=== PATIENT | female | born 1990 | race Caucasian/White ===

== ENCOUNTER 2018-08-03 11:49 | Emergency (ER) | payer SELFPAY ==
[~2018-08-03] VITALS: Ht 167.6 cm; Wt 78.9 kg
[2018-08-03 11:54] VITALS: BP 117/73; PULSE 94; RESP 18; Ht 167.6 cm; Wt 78.9 kg
--- NOTE | 2018-08-03 12:28 | ERD ---
ER Documentation Chief Complaint Chief Complaint vag bleed LMP 05/15/18 HPI This is a 28-year-old female, , presents ED after being seen at a woman[facility] clinic earlier today and being told she had a positive test and with complaints of vaginal bleeding times 6 days. Patient states that 6 days ago she had heavy vaginal bleeding and passed a clot. Patient states that she has been spotting here and there since 6 days ago. Patient states that she is not bleeding enough to wear a pad or tampon. Patient's last menstrual period was 05-15-18 but she states that her menses are irregular. Denies fever, chills, headache, lightheadedness, nausea, vomiting, diarrhea, constipation, hemoptysis, melena, hematochezia, vaginal pain, vaginal discharge, abdominal pain no other symptoms. No known drug allergies ROS All systems reviewed and are negative except as per history of present illness. Medications Home Meds Active Scripts Cephalexin* (Keflex*) 500 Mg Capsule, 500 MG PO BID for 7 Days, CAP Prov:MEGAN CORNELIUS PA-C 08/03/18 Allergies Allergies: Coded Allergies: latex (Verified Allergy, Unknown, 08/03/18) PMhx/Soc Hx Alcohol Use: Yes Hx Substance Use: No Hx Tobacco Use: No Smoking Status: Never smoker FmHx Family History: No diabetes Physical Exam Vitals Vital Signs Date Temp Pulse Resp B/P (MAP) Pulse Ox O2 O2 Flow FiO2 Time Delivery Rate 08/03/18 98.4 94 18 117/73 99 11:54 (88) Physical Exam Const: No acute distress Head: Atraumatic Eyes: Normal Conjunctiva ENT: Normal External Ears, Nose and Mouth. Neck: Full range of motion. No meningismus. Resp: Clear to auscultation bilaterally Cardio: Regular rate and rhythm, no murmurs Abd: Soft, non tender, non distended. Normal bowel sounds, no peritoneal signs, no rigidity, no surgical abdomen, bowel sounds present all 4 quadrants, McBurney's point nontender, no rebound tenderness, nontender light deep palpation all 4 quadrants Skin: No petechiae or rashes Back: No midline or flank tenderness Ext: No cyanosis, or edema Neur: Awake and alert Psych: Normal Mood and Affect Result Diagram: 08/03/18 1241 08/03/18 1241 Results 24 hrs Laboratory Tests Test 08/03/18 12:30 08/03/18 12:40 08/03/18 12:41 Urine Color YELLOW Urine Clarity SLIGHTLY CLOUDY Urine pH 7.0 Urine Specific [place] 1.021 Urine Ketones NEGATIVE mg/dL Urine Nitrite NEGATIVE mg/dL Urine Bilirubin NEGATIVE mg/dL Urine Urobilinogen 2+ mg/dL Urine Leukocyte Esterase 1+ [place]/ul Urine Microscopic RBC 11 /HPF Urine Microscopic WBC 17 /HPF Urine Squamous Epithelial Cells MANY /HPF Urine Mucus FEW /HPF Urine Hemoglobin 3+ mg/dL Urine Glucose NEGATIVE mg/dL Urine Total Protein 2+ mg/dl POC Beta HCG, Qualitative POSITIVE White Blood Count 5.2 10^3/ul Red Blood Count 4.36 10^6/ul Hemoglobin 13.6 g/dl Hematocrit 40.6 % Mean Corpuscular Volume 93.1 fl Mean Corpuscular Hemoglobin 31.2 pg Mean Corpuscular 33.5 g/dl Hemoglobin Concent Red Cell Distribution Width 13.0 % Platelet Count 241 10^3/UL Mean Platelet Volume 10.2 fl Immature Granulocytes % 0.200 % Neutrophils % % Segmented Neutrophils % (Manual) 49 % Band Neutrophils % (Manual) 11 % Lymphocytes % % Lymphocytes % (Manual) 23 % Reactive Lymphocytes % (Manual) 13 % Monocytes % % Monocytes % (Manual) 1 % Eosinophils % % Eosinophils % (Manual) 2 % Basophils % % Basophils % (Manual) 0.0 % Metamyelocytes % (manual) 0 % Myelocytes % (Manual) 1 % Promyelocytes % (Manual) 0 % Blast Cells % (Manual) 0.0 % Plasma Cells % (manual) 0 % Nucleated Red Blood Cells % 0 % Immature Granulocytes # 0.010 10^3/ul Neutrophils # 10^3/ul Neutrophils # (Manual) 2.6 10^3/ul Band Neutrophils # 0.5 10^3/ul Lymphocytes (Manual) 1.1 10^3/ul Lymphocytes # 10^3/ul Reactive Lymphocytes # 0.6 10^3/ul Monocytes # 10^3/ul Monocytes # (Manual) 0.0 10^3/ul Eosinophils # 10^3/ul Basophils # 10^3/ul Basophils # (Manual) 0.0 10^3/ul Metamyelocytes # 0.0 10^3/ul Myelocytes # 0.0 10^3/ul Promyelocytes # 0.0 10^3/ul Blastocytes # 0.0 10^3/UL Plasma Cells # (manual) 0.0 10^3/ul Nucleated Red Blood Cells # 10^3/ul Percent Large 0 % Granular Lymphocytes Prolymphocytes 0 10^3/ul Absolute Prolymphocytes 0.0 10^3/ul Promonocytes 0 % Prothrombin Time 12.2 Sec Prothrombin Time Ratio 1.0 INR International 0.89 Normalized Ratio Activated Partial Thromboplast 31.1 Sec Time Sodium Level 138 mmol/L Potassium Level 3.8 mmol/L Chloride Level 103 mmol/L Carbon Dioxide Level 24 mmol/L Anion Gap 11 Blood Urea Nitrogen 7 mg/dl Creatinine 0.58 mg/dl Est Glomerular Filtrat > 60 mL/min Rate mL/min Glucose Level 112 mg/dl Calcium Level 9.6 mg/dl Total Bilirubin 0.0 mg/dl Direct Bilirubin 0.00 mg/dl Indirect Bilirubin 0.0 mg/dl Aspartate Amino 37 IU/L Transf (AST/SGOT) Alanine 38 IU/L Aminotransferase (ALT/SGPT) Alkaline Phosphatase 61 IU/L Total Protein 7.9 g/dl Albumin 4.4 g/dl Globulin 3.50 g/dl Albumin/Globulin Ratio 1.25 Beta HCG, Quantitative 12274.0 mIU/ml Procedures/MDM EKG, MONITORS, & DIAGNOSTIC IMAGING: [place] [address] Radiology Main Line: [phone] DIAGNOSTIC IMAGING REPORT Patient: JEVON REILLY : 1990 Age: 28 Sex: F MR #: [id number] DOS: 08/03/18 0000 Ordering MD: MEGAN CORNELIUS PA-C Location: [facility] Room/Bed: PROCEDURE: US Obstetrical 1st Trimester CLINICAL INDICATION: Vaginal bleeding TECHNIQUE: Multiple real-time images were acquired of the patient's maternal abdomen utilizing a curved array transducer. COMPARISON: None FINDINGS: The uterus is anteverted and normal in size measuring 8.8 cm in sagittal diameter and 6.0 x 5.8 cm in cross diameter.. There is a well implanted gestational sac within the fundus of the uterus. A yolk sac is identified. There is a single pole with a crown-rump length of 2.09 cm which corresponds to a gestational age of 8 weeks 5 days plus or minus 5 days. There is positive cardiac activity being at 174 beats per minute. The right ovary measures 4.5 x 3.2 x 2.3 cm and appears normal.. The left ovary is not identified. No adnexal mass or free fluid is identified IMPRESSION: 1. Single live intrauterine fetus which by ultrasound corresponds to a gestational age of a weeks 5 days plus or minus 5 days. The heart rate is 174 bpm. The estimated date of delivery based on today's sonogram is 03/10/2019. 2. Normal appearing right ovary. The left ovary is not identified. 3. No adnexal mass or free fluid is evident. Physician Jarrod Date Time Electronically viewed and signed by Physician Jarrod on 08/03/2018 13:23 RH/ CC: MEGAN CORNELIUS PA-C [id number] LAB INTERPRETATION: CBC shows no evidence of hemorrhage or infection Chemistry shows no evidence of significant electrolyte abnormalities or renal insufficiency Liver function test shows no evidence of acute biliary or hepatic dysfunction Coagulation study showed no concerning coagulopathy HCG 67370 Blood type O+ Urinalysis remarkable for 17 microscopic WBCs, 1+ leukocyte esterase ER COURSE: The patient was stable throughout ED course. I kept the patient and/or family informed of laboratory and diagnostic imaging results throughout the emergency room course. The patient was promptly evaluated and a treatment plan was devised based on H&P and other data. This plan was discussed with the patient who agreed and had no further questions or concerns prior to discharge. MEDICAL DECISION MAKING: This is a 28 year-old female, G 2 P 0010, who presents with vaginal bleeding at roughly 8 weeks with complaints of vaginal bleeding. Ultrasound co nfirms an intrauterine and shows a fetus at a gestational age of 8 weeks and 5 days with a heart rate of 174. Ectopic not visualized. Patient is O+ and does not require any rhogam. She is hemodynamically stable. Patient will need to repeat quantitative hCG in the next 48-72 days to show a upward trend. Advise for patient either return to the ER for repeat quantitative hCG or to follow-up with her SIGNAL MECHANIC doctor for this. Urinalysis is remarkable for leukocyte esterase and WBCs. We will treat patient for UTI. At this time there is no SIGNAL MECHANIC emergency. No evidence of ovarian torsion, ectopic , tubo-ovarian abscess, hemorrhage, sepsis. advised to return to ER with any worsening symptoms. Patient was given copies of all ultrasound findings and blood work done in the emergency department today DISPOSITION PLAN: We discussed follow up with the patient's primary care doctor within 24 to 48 hours. Patient counseled regarding my diagnostic impression and care plan. Prior to discharge all questions answered. Pt agrees with treatment plan and understands strict return precautions. Precautionary instructions provided including instructions to return to the ER if not improving or for any worsening or changing symptoms or concerns. SPECIALIST FOLLOW UP RECOMMENDED: OB Patient has been advised to follow up with primary care in 1-2 days. Disclaimer: Inadvertent spelling and grammatical errors are likely due to EHR/dictation software use and do not reflect on the overall quality of patient care. Also, please note that the electronic time recorded on this note does not necessarily reflect the actual time of the patient encounter. Departure Diagnosis: Primary Impression: Vaginal bleeding in patient at less than 20 weeks gestation Additional Impression: UTI (urinary tract infection) in in first trimester Condition: Stable Patient Instructions: Bleeding During Early , Understanding Urinary Tract Infections (UTIs) Referrals: [facility] REFERRAL LIST Additional Instructions: Patient advised to return to emergency department or be seen by SIGNAL MECHANIC for repeat labs in 48-72 hours. Patient advised to return to the ED immediately for new or worsening symptoms. Patient advised to follow up with primary care provider in the next 24-48 hours. Patient verbalized understanding and agrees with treatment plan and course of action. If patient has no primary care they may follow up with one of the community clinics listed on the following page or one of the options listed below [facility] + [facility] [address] [place] [phone] or [facility] [id number] [place] [address] [id number] MEGAN CORNELIUS PA-C Aug 03, 2018 12:28
[2018-08-03] MEDS ORDERED: CEPH-443 PO (13:59)
== END 2018-08-03 15:27 | disposition home or self-care (01) ==
LOC: FTE 11:49
DX: O20.9 Hemorrhage in early pregnancy, unspecified (principal); O23.41 Unspecified infection of urinary tract in pregnancy, first trimester; Z91.040 Latex allergy status; Z3A.08 8 weeks gestation of pregnancy
CPT/HCPCS: 36415; 76801; 80053; 81001; 81025; 84702; 85025; 85610; 85730; 86900; 86901